=== PATIENT | female | born 1975 | race Hispanic/Latino ===

== ENCOUNTER 2017-09-06 06:57 | Outpatient (CLI) | payer BC ==
--- NOTE | 2017-09-06 09:49 | Magnetic Resonance Report ---
FINAL REPORT EXAM: MR ORBIT/FACE/NECK WO/W CON HISTORY: SWELLING OF LYMPH NODE TECHNIQUE: Fat sensitive and fluid sensitive MR sequences of the neck were performed in axial, coronal planes. Images were obtained before and after IV contrast administration. PRIORS: None. FINDINGS: There are nonenlarged lymph nodes in carotid regions bilaterally. No abnormal lymphadenopathy seen. There is mild prominence of the lingual tonsils bilaterally. There are no abnormal fluid collections seen. No abnormal mass is seen. Parotid glands and submandibular glands are symmetric. Soft IMPRESSION: Nonenlarged lymph nodes seen in the neck bilaterally. No abnormal lymphadenopathy seen. Mild prominence of lingual tonsils. There is otherwise there is no significant abnormality identified.
== END 2017-09-06 06:58 | disposition home or self-care (01) ==
LOC: MRI 06:57
DX: J35.1 Hypertrophy of tonsils (principal)
CPT/HCPCS: 70543; A9577

== ENCOUNTER → 2017-11-01 | Outpatient (CLI) | payer BC ==
[2017-11-01 07:25] LABS: Basophils % (Auto) 0.8 % (0.0-1.8); Eosinophils # (Auto) 0.1 K/mm3 (0.0-0.4); Eosinophils % (Auto) 1.3 % (0.0-4.3); Hematocrit 40.9 % (30.3-42.9); Hemoglobin 14.1 gm/dl (10.1-14.3); Lymphocytes # (Auto) 2.7 K/mm3 (1.2-5.4); Lymphocytes % (Auto) 43.6 % (13.4-35.0); Mean Corpuscular HGB Conc 35 % (30-34); Mean Corpuscular Hemoglobin 31 pg (28-32); Mean Corpuscular Volume 90 fl (79-97); Monocytes # (Auto) 0.5 K/mm3 (0.0-0.8); Monocytes % (Auto) 7.5 % (0.0-7.3); Platelet Count 224 K/mm3 (140-440); Red Blood Count 4.57 M/mm3 (3.65-5.03); Red Cell Distribution Width 12.3 % (13.2-15.2)
[2017-11-01 07:50] LABS: Alanine Aminotransferase 127 units/L (7-56); Albumin 4.3 g/dL (3.9-5); BUN/Creatinine Ratio 22; Blood Urea Nitrogen 11 mg/dL (7-17); Chol/HDL Ratio 6.17 %; HDL Cholesterol 41 mg/dL (40-59); Hemolysis Index 4; LDL Cholesterol,Direct 189 mg/dL (50-130)
--- NOTE | 2017-11-01 08:01 | Ultrasound Report ---
ULTRASOUND ABDOMEN LIMITED INDICATION: Elevated liver enzymes. Colonic constipation. COMPARISON: None similar. FINDINGS: Right upper quadrant sonography demonstrates diffusely echogenic liver with grossly preserved contours. No definite focal suspicious lesion or biliary dilatation. No gallstones or pericholecystic fluid. Gallbladder wall thickness is 1.7 mm. Common bile duct is 4.7 mm. Imaged pancreas, nonaneurysmal abdominal aorta and IVC within normal limits. Nonhydronephrotic 10.2 x 5.4 x 7.5 cm right kidney with cortical thickness of 1.7 cm. CONCLUSION: Fatty liver without acute sonographic abnormality, as described. Thank you for the opportunity to participate in this patient's care.
[2017-11-01 10:19] LABS: Hepatitis A Antibody IgM Non-Reactive (NonReactive); Hepatitis B Core IgM Non-Reactive (NonReactive); Hepatitis B Surface Antigen Non-Reactive (Negative); Hepatitis C Virus Antibody Non-Reactive (NonReactive)
[2017-11-03 23:02] LABS: ANA Screen, IFA Negative (Negative)
== END | disposition home or self-care (01) ==
LOC: US 06:54
DX: K59.09 Other constipation (principal)
CPT/HCPCS: 36415; 76705; 80053; 80061; 80074; 82103; 82390; 82728; 83520; 85025; 86038; 86235

== ENCOUNTER 2018-01-12 08:54 | Outpatient (CLI) | payer BC ==
--- NOTE | 2018-01-12 10:51 | Ultrasound Report ---
THYROID ULTRASOUND INDICATION: Hypothyroidism. COMPARISON: None similar. FINDINGS: Grayscale and color-flow thyroid sonography demonstrates normal echotexture and vascularity with slightly lobulated contours. No focal lesions. Right thyroid lobe estimated at 4.4 x 1.5 x 1.6 cm. Left thyroid lobe is 3.7 x 1.5 x 1.7 cm. Isthmus measures 0.2 cm AP. A 1.4 x 0.4 x 0.7 cm neck lymph node below the right ear incidentally noted. CONCLUSION: Unremarkable thyroid ultrasound, as described. Thank you for the opportunity to participate in this patient's care.
== END 2018-01-12 08:55 | disposition home or self-care (01) ==
LOC: US 08:54
PROVIDERS: ATTEND Family Medicine
DX: E03.9 Hypothyroidism, unspecified (principal); Z78.0 Asymptomatic menopausal state
CPT/HCPCS: 76536; 77080

== ENCOUNTER 2018-03-30 14:47 | Outpatient (CLI) | payer BC ==
--- NOTE | 2018-04-20 10:06 | Ultrasound Report ---
Left mammogram: This examination is a followup to outside examinations the latest being June 2017. Images and descriptions of ultrasound at that time demonstrated that the patient had palpable findings in the left breast with no ultrasound correlation. The only positive description was in the 7:00 location 1 cm from the nipple where there was a hyperechoic 7 mm echogenicity. On the prior exam there is also a hypoechoic 7.5 mm finding just posterior to the above finding. Ultrasound was initially performed without an attending radiologist in the patient has returned to our department for repeat imaging. She currently fails to describe any palpable finding but says that her some discomfort in the 7:00 location about 6 cm from the nipple. Imaging over this area shows no findings. 3 cm from the nipple in the 7:00 location however does again identify an area of hyperechogenicity which is similar but not exactly identical to the prior finding either in shape nor location since it is more than 1 cm from the nipple. It has however no suspicious characteristics. The hypoechoic area noted on the prior exam is not currently identified. No other significant findings are noted. Impressions: Benign appearing hyperechoic area that may represent a focal area of fat or other benign lesion. No ultrasound correlation with the area of focal discomfort. Recommendation: Clinical followup. It is of note that the patient had a left asymmetry on her prior mammogram one year ago and therefore a followup mammogram at this time should be considered. BI-RADS CATEGORY: 2 = Benign ACR BI-RADS MAMMOGRAPHIC CODES: 0 = Needs additional imaging evaluation; 1 = Negative; 2 = Benign; 3 = Probably benign; 4 = Suspicious; 5 = Malignant; 6 = Known biopsy-proven malignancy COMMENT: 1. Dense breast tissue, i.e., adenosis, fibrocystic changes, etc., may obscure an underlying neoplasm. 2. Approximately 10% of cancers are not detected with mammography. 3. A negative mammography report should not delay biopsy if a clinically suspicious mass is present.
== END 2018-03-30 14:48 | disposition home or self-care (01) ==
LOC: US 14:47
PROVIDERS: ATTEND Family Medicine
DX: R93.89 Abnormal findings on diagnostic imaging of other specified body structures (principal)

== ENCOUNTER 2018-12-27 09:07 | Day surgery (SDC) | payer BC ==
[2018-12-27 10:28] LABS: Basophils % (Auto) 0.7 % (0.0-1.8); Eosinophils # (Auto) 0.1 K/mm3 (0.0-0.4); Eosinophils % (Auto) 1.2 % (0.0-4.3); Hematocrit 38.4 % (30.3-42.9); Hemoglobin 13.1 gm/dl (10.1-14.3); Lymphocytes # (Auto) 2.7 K/mm3 (1.2-5.4); Lymphocytes % (Auto) 46.3 % (13.4-35.0); Mean Corpuscular HGB Conc 34 % (30-34); Mean Corpuscular Volume 89 fl (79-97); Monocytes # (Auto) 0.4 K/mm3 (0.0-0.8); Monocytes % (Auto) 7.3 % (0.0-7.3); Platelet Count 218 K/mm3 (140-440); Red Blood Count 4.31 M/mm3 (3.65-5.03)
[2018-12-27 11:19] LABS: Partial Thromboplastin Time 27.8 Sec. (24.2-36.6)
[2018-12-27] MEDS ORDERED: DILAUDID ONE (11:20)
[2018-12-27] MEDS ORDERED: ZOFRAN ONE (11:21)
[2018-12-27] MEDS ORDERED: DILAUDID IV ONE (11:35)
[2018-12-27] MEDS ORDERED: ZOFRAN IV ONE (11:35)
--- NOTE | 2018-12-27 12:57 | Cat Scan Report ---
CT-GUIDED LIVER BIOPSY INDICATION : Elevated Liver Enzymes. COMPARISON: None PROCEDURE: The risks (including but not limited to bleeding and infection) and benefits were explain ed to the patient and informed consent was obtained. All CT scans at this location are performed usi ng CT dose reduction for KINZARA by means of automated exposure control. A time out procedure was performed. The procedure site was prepped and draped in the usual sterile f ashion and lidocaine was used for local anesthesia. Anxiolysis was accomplished with IV Dilaudid and Zofran. Using CT guidance, a 17-gauge introducer needle was advanced into the right hepatic lobe. A single 1. 3 cm 18-gauge core biopsy was obtained for pathologic analysis. Follow-up postbiopsy scan demonstrate s no evidence for hemorrhage. The patient tolerated the procedure well with no complications. IMPRESSION: Successful CT-guided biopsy of the right hepatic lobe. Signer Name: Claudio Pratt Jr, MD Signed: 12/27/2018 12:53 PM Workstation Name: [id number]
[2018-12-27 14:20] VITALS: BP 110/68
== END 2018-12-27 15:35 | disposition home or self-care (01) ==
LOC: CATHLABREC 09:07
PROVIDERS: ATTEND Internal Medicine Gastroenterology
DX: K76.0 Fatty (change of) liver, not elsewhere classified (principal); R74.8 Abnormal levels of other serum enzymes; E78.00 Pure hypercholesterolemia, unspecified; K21.9 Gastro-esophageal reflux disease without esophagitis; E03.9 Hypothyroidism, unspecified; Z98.890 Other specified postprocedural states; Z79.899 Other long term (current) drug therapy; Z90.710 Acquired absence of both cervix and uterus
CPT/HCPCS: 36415; 47000; 77012; 85025; 85610; 85730; 88307; 88313; 96374; 96375; J1170; J2405

== ENCOUNTER 2019-01-29 08:02 | Day surgery (SDC) | payer BC ==
[~2019-01-29 08:02] MED LIST: SODIUM CHLORIDE 0.9% 1000 ML 1,000 ML IV SCH
--- NOTE | 2019-01-29 08:45 | Anesthesia Day of Surgery ---
Anesthesia Day of Surgery - Day of Surgery Patient Examined: Yes Patient H&P Reviewed: Yes Patient is NPO: Yes
--- NOTE | 2019-01-29 08:49 | Anesthesia Consultation ---
Anesthesia Consult and Med Hx Date of service: 01/29/19 - Airway Anesthetic Teeth Evaluation: Good (Braces) ROM Head & Neck: Adequate Mental/Hyoid Distance: Adequate Mallampati Class: Class II Intubation Access Assessment: Probably Good - Pre-Operative Health Status ASA Pre-Surgery Classification: ASA2 Proposed Anesthetic Plan: MAC - Central Nervous System Hx Psychiatric Problems: No - Endocrine Hx Liver Disease: Yes (Fatty liver and POLLOCK) Hx Hypothyroidism: Yes - Other Systems Hx Cancer: No
--- NOTE | 2019-01-29 09:53 | Short Stay Summary ---
Short Stay Documentation Date of service: 01/29/19 Narrative H&P: The patient presents for EGD to evaluate chronic GERD and exclude Mariscal's esophagus. - History Past Medical History: GERD, other (Migraines) Past Surgical History: hysterectomy Social history: no significant social history, no smoking, no alcohol abuse - Allergies and Medications Current Medications: Allergies No Known Allergies Allergy (Verified 12/27/18 10:03) Home Medications Medication Instructions Recorded Confirmed Last Taken Type Thyroid,Pork [Nature-Throid] 65 mg PO QDAY 12/27/18 12/27/18 01/28/19 History Valtrex 01/29/19 01/28/19 History Active Medications Sodium Chloride (Nacl 0.9% 1000 Ml) 1,000 mls @ 50 mls/hr IV DIRECT JOAQUIN Last Admin: 01/29/19 09:17 Dose: 50 mls/hr Documented by: - Physical exam General appearance: no acute distress Integumentary: no rash, no growths, no abnormal pigmentation HEENT: Atraumatic, PERRLA, EOMI, Mucous membr. moist/pink Lungs: Clear to auscultation, Normal air movement Breasts: deferred Heart: Regular rate, Normal S1, Normal S2, No murmurs, Murmur Gastrointestinal: normoactive bowel sounds, no tenderness, no distended, no masses, no guarding, no organomegaly Female Genitourinary: deferred Rectal Exam: deferred Extremities: no ischemia, pulses intact, pulses symmetrical, No edema, normal temperature, normal color, Full ROM Neurological: Normal gait, Normal speech, Strength at 5/5 X4 ext, Normal tone, Sensation intact, Cranial nerves 3-12 NL - Brief post op/procedure progress note Date of procedure: 01/29/19 Findings: see dictation Estimated blood loss: none Pathology: none Condition: stable - Disposition Condition at discharge: Good Disposition: DC-01 TO HOME OR SELFCARE - Discharge Diagnoses (1) GERD (gastroesophageal reflux disease) Status: Acute Short Stay Discharge Plan Activity: other (no driving for 24 hours) Weight Bearing Status: Weight Bear as Tolerated Diet: regular Follow up with: NATALI TRIMBLE MD [Primary Care Provider] - 7 Days
--- NOTE | 2019-01-29 09:56 | Operative Report ---
Operative Report Operative Report: Date of procedure: 01/29/2019 Procedure: Esophagogastroduodenoscopy Preprocedure diagnosis: Chronic GERD. Rule out Mariscal's. Post procedure diagnosis: Minimal distal esophagitis, no evidence of Mariscal's. Endoscopist: Dr. Henson Anesthesia: Monitored anesthesia care per anesthesia department Medications: Propofol and fentanyl per anesthesia. Estimated blood loss: 0 After careful discussion of the nature and purpose of the procedure as well as details the technique risks benefits and alternatives consent was obtained. The patient was placed in the left lateral decubitus position and medicated per anesthesia. The tip of the Olympus video scope was passed per orum under direct vision into the esophagus and advanced into the stomach and descending duodenum. The descending duodenum the duodenal bulb and pylorus were symmetrical and normal. The scope was withdrawn into the stomach and the stomach then gently insufflated with air. The antrum was normal. The stomach was further insufflated and the scope was then retroflexed and partially withdrawn. The cardia, fundus, and body of the stomach were within normal limits and easily distensible.The scope was then withdrawn in the forward position. No hiatus hernia was present. The esophagogastric junction was at 38 centimeters. There was minimal inflammation present at the Z line. The esophageal body was normal throughout. The procedure was was well tolerated and the patient was observed in recovery. Impressions: Minimal distal esophagitis. Normal study otherwise. No evidence of Mariscal's. Plan: Continue acid suppression therapy, diet and lifestyle measures. Office follow-up in 4-6 months. Electronically signed: Vish Henson MD
[2019-01-29] MEDS ORDERED: PROPOFOL 200 MG/20 ML VIAL IV ONE (10:00)
[2019-01-29 10:26] VITALS: BP 112/68
--- NOTE | 2019-01-29 10:31 | Post Anesthesia Evaluation ---
- Post Anesthesia Evaluation Patient Participated: Yes Airway Patent: Yes Stable Respiratory Function: Yes Nausea/Vomiting: No Temp > 96.8F: Yes Pain Manageable: Yes Adequeate Hydration: Yes Anesthesia Complications: No
[2019-01-29] MEDS ORDERED: LIDOCAINE MPF (2%) 20 MG/1 ML VIAL 5 ML ONE (11:00)
== END 2019-01-29 08:03 | disposition home or self-care (01) ==
LOC: GIO 08:02
PROVIDERS: ATTEND Internal Medicine Gastroenterology
DX: K21.0 Gastro-esophageal reflux disease with esophagitis (principal); E78.00 Pure hypercholesterolemia, unspecified; E03.9 Hypothyroidism, unspecified; Z90.710 Acquired absence of both cervix and uterus; Z98.890 Other specified postprocedural states; Z79.899 Other long term (current) drug therapy
CPT/HCPCS: 43235; J2704; J7030

== ENCOUNTER 2019-08-26 07:23 | Outpatient (CLI) | payer BC | END 2019-08-26 07:24 | disposition home or self-care (01) | LOC: US 07:23 | PROVIDERS: ATTEND Family Medicine | DX: N28.1 Cyst of kidney, acquired (principal); K76.0 Fatty (change of) liver, not elsewhere classified | CPT/HCPCS: 76700 ==

== ENCOUNTER 2019-09-05 10:27 | Outpatient (CLI) | payer BC ==
[2019-09-05 11:04] LABS: Blood Urea Nitrogen 9 mg/dL (7-17)
--- NOTE | 2019-09-05 12:30 | Cat Scan Report ---
CT abdomen w con INDICATION: MAIN. Abdominal pain TECHNIQUE: All CT scans at this location are performed using CT dose reduction for ALARA by means of automated e xposure control. COMPARISON: 12/27/2018 FINDINGS: Lung bases are clear. Diffuse hepatic steatosis, but no focal liver lesions. Spleen, pancreas, kidney s and adrenals are negative. Abdominal aorta is normal in size. No adenopathy. Incidental retroaortic left renal vein. IMPRESSION: 1. Hepatic steatosis. 2. No new abnormalities. Signer Name: Cortes Thomas MD Signed: 09/05/2019 12:26 PM Workstation Name: [id number]
== END 2019-09-05 10:28 | disposition home or self-care (01) ==
LOC: CT 10:27
PROVIDERS: ATTEND Family Medicine
DX: K76.0 Fatty (change of) liver, not elsewhere classified (principal); R91.1 Solitary pulmonary nodule; J30.89 Other allergic rhinitis; I26.99 Other pulmonary embolism without acute cor pulmonale; R93.5 Abnormal findings on diagnostic imaging of other abdominal regions, including retroperitoneum
CPT/HCPCS: 36415; 74160; 82565; 84520; Q9967

== ENCOUNTER 2020-01-16 09:01 | Outpatient (CLI) | payer BC ==
--- NOTE | 2020-01-16 11:21 | Treadmill Report ---
EXERCISE STRESS TEST The patient exercised for 9-1/2 minutes of a Tristan protocol, reaching stage 4 and achieving 10.5 METs. Peak heart rate was 162 beats per minute. Peak blood pressure was 145/90. There was no chest pain. Test was stopped for fatigue. Baseline ECG was sinus rhythm. With exercise, there were no ST changes of ischemia. No significant dysrhythmias were noted. CONCLUSION: 1. Very good exercise capacity. 2. No chest pain with exercise. 3. No ST changes of ischemia. 4. No significant dysrhythmias. 5. This is a normal exercise ECG test. JOB# [id number] CA/NTS
--- NOTE | 2020-01-16 12:26 | Mammography Report ---
DEXA BONE DENSITY SCAN INDICATION / CLINICAL INFORMATION: E89.40. 44 years Female COMPARISON: 01/12/2018. LUMBAR SPINE, L1-L3: - Bone mineral density (BMD) = 0.800 g/cm2. - T-score = -2.2 - Z-score = -1.9 Change (%) since most recent prior (if available): Decrease of 9.6% LEFT HIP, TOTAL : - Bone mineral density (BMD) = 0.907 g/cm2. - T-score = -0.3 - Z-score = 0.0 Change (%) since most recent prior (if available): Decrease of 0.5 % IMPRESSION: 1. WHO Classification: Osteopenia. Fracture Risk: Increased. BMD Reporting Guidelines (ISCD, 2015) BMD Reporting in Postmenopausal Women and in Men Age 50 and Older * T-scores are preferred. * The WHO densitometric classification is applicable. BMD Reporting in Females Prior to Menopause and in Males Younger Than Age 50 * Z-scores, not T-scores, are preferred. This is particularly important in children. * A Z-score of -2.0 or lower is defined as below the expected range for age, and a Z-score above -2. 0 is within the expected range for age. * Osteoporosis cannot be diagnosed in men under age 50 on the basis of BMD alone. * The WHO diagnostic criteria may be applied to women in the menopausal transition. http://www.iscd.org/official-positions/0318-vrlr-edtharvk-positions-adult/ Signer Name: Giuseppe Murcia MD Signed: 01/16/2020 12:22 PM Workstation Name: [id number]
== END 2020-01-16 09:02 | disposition home or self-care (01) ==
LOC: MAMMO 09:01
PROVIDERS: ATTEND Family Medicine
DX: R01.1 Cardiac murmur, unspecified (principal); E89.40 Asymptomatic postprocedural ovarian failure
CPT/HCPCS: 77080; 93017; 93306

== ENCOUNTER 2020-02-28 11:32 | Outpatient (CLI) | payer BC ==
[2020-02-28 12:06] LABS: Hematocrit 39.9 % (30.3-42.9); Hemoglobin 13.8 gm/dl (10.1-14.3); Mean Corpuscular HGB Conc 35 % (30-34); Mean Corpuscular Volume 90 fl (79-97); Platelet Count 252 K/mm3 (140-440); Red Blood Count 4.43 M/mm3 (3.65-5.03); Red Cell Distribution Width 12.8 % (13.2-15.2)
[2020-02-28 12:27] LABS: Alanine Aminotransferase 201 units/L (7-56); Albumin 4.4 g/dL (3.9-5); Blood Urea Nitrogen 10 mg/dL (7-17); Calcium 9.8 mg/dL (8.4-10.2); Chol/HDL Ratio 5.42 %; HDL Cholesterol 52 mg/dL (40-59); Hemolysis Index 9; LDL Cholesterol,Direct 249 mg/dL (50-130)
[2020-02-28 12:29] LABS: BUN/Creatinine Ratio 17
== END 2020-02-28 11:33 | disposition home or self-care (01) ==
LOC: LAB 11:32
PROVIDERS: ATTEND Internal Medicine Gastroenterology
DX: K76.0 Fatty (change of) liver, not elsewhere classified (principal)
CPT/HCPCS: 36415; 80053; 80061; 85027

== ENCOUNTER 2020-05-11 07:19 | Outpatient (CLI) | payer BC ==
--- NOTE | 2020-05-11 09:37 | Ultrasound Report ---
LIMITED RUQ ABDOMINAL ULTRASOUND INDICATION: ELEVATED LFTS. COMPARISON: CT abdomen from 09/05/2019. FINDINGS: Pancreas: Visualized portions show no significant abnormality. Abdominal Aorta: Normal size. IVC: No significant abnormality. Liver: The liver measures 15.6 cm in length. Diffusely echogenic parenchyma with no focal mass ident ified. Normal hepatopedal blood flow in the main portal vein. Gallbladder: No significant abnormality. Bile ducts: No significant abnormality. Common bile duct measures 4 mm. Right kidney: No significant abnormality visualized.. Free fluid: None. Additional Findings: None. IMPRESSION: 1. Echogenic appearance of the liver, most commonly seen with steatosis. Signer Name: Bautista Price MD Signed: 05/11/2020 9:32 AM Workstation Name: [id number]
== END 2020-05-11 07:20 | disposition home or self-care (01) ==
LOC: US 07:19
PROVIDERS: ATTEND Internal Medicine Gastroenterology
DX: R79.89 Other specified abnormal findings of blood chemistry (principal)
CPT/HCPCS: 76705

== ENCOUNTER 2020-05-26 10:26 | Day surgery (SDC) | payer BC ==
[2020-05-26] MEDS ORDERED: propofoL 200 MG/20 ML VIAL IV ONE ×2 (11:26→12:00)
--- NOTE | 2020-05-26 12:20 | Anesthesia Day of Surgery ---
Anesthesia Day of Surgery - Day of Surgery Patient Examined: Yes Patient H&P Reviewed: Yes Patient is NPO: Yes (Late entry. She was seen preop)
--- NOTE | 2020-05-26 12:21 | Anesthesia Consultation ---
Anesthesia Consult and Med Hx Date of service: 05/26/20 - Airway Anesthetic Teeth Evaluation: Good (Braces) ROM Head & Neck: Adequate Mental/Hyoid Distance: Adequate Mallampati Class: Class II Intubation Access Assessment: Good - Pre-Operative Health Status ASA Pre-Surgery Classification: ASA2 Proposed Anesthetic Plan: MAC - Pulmonary Hx Smoking: No - Central Nervous System Hx Psychiatric Problems: No - Endocrine Hx Liver Disease: Yes (Fatty liver and POLLOCK) Hx Hypothyroidism: Yes - Other Systems Hx Cancer: No Hx Obesity: Yes
--- NOTE | 2020-05-26 12:22 | Short Stay Summary ---
Short Stay Documentation Date of service: 05/26/20 Narrative H&P: The patient presents for screening colonoscopy, high risk profile due to father with colon cancer below the age of 60. - History Past Medical History: GERD, hyperlipidemia, liver disease (Fatty liver) Past Surgical History: hysterectomy Social history: no significant social history, no smoking, no alcohol abuse - Allergies and Medications Current Medications: Allergies No Known Allergies Allergy (Verified 12/27/18 10:03) Home Medications Medication Instructions Recorded Confirmed Last Taken Type Thyroid,Pork [Nature-Throid] 65 mg PO QDAY 12/27/18 05/26/20 05/25/20 09:00 History Valtrex 500 mg PO DAILY 01/29/19 05/26/20 05/25/20 09:00 History Green Tea Caplet 1 tab PO DAILY 03/27/20 05/26/20 05/25/20 09:00 History Active Medications Sodium Chloride (Nacl 0.9% 1000 Ml) 1,000 mls @ 50 mls/hr IV DIRECT JOAQUIN Last Admin: 05/26/20 11:30 Dose: 50 mls/hr Documented by: - Physical exam General appearance: no acute distress, well-nourished Integumentary: no rash, no growths, no abnormal pigmentation HEENT: Atraumatic, PERRLA, EOMI, Mucous membr. moist/pink Lungs: Clear to auscultation Breasts: deferred Heart: Regular rate, Normal S1, Normal S2, No murmurs Gastrointestinal: normoactive bowel sounds, no distended, no masses, no guarding, no organomegaly Rectal Exam: normal exam-external/orifice, normal rectal tone, no mass Extremities: no ischemia, pulses intact, pulses symmetrical, No edema, normal temperature, normal color, Full ROM Neurological: Normal gait, Normal speech, Strength at 5/5 X4 ext, Normal tone, Sensation intact, Cranial nerves 3-12 NL - Brief post op/procedure progress note Date of procedure: 05/26/20 Findings: See dictation Estimated blood loss: none Pathology: none Condition: stable - Disposition Condition at discharge: Good Disposition: DC-01 TO HOME OR SELFCARE - Discharge Diagnoses (1) Family history of colon cancer in father Status: Acute Short Stay Discharge Plan Activity: other (No driving for 24 hours) Weight Bearing Status: Full Weight Bearing Diet: regular Follow up with: GUILLERMINA WAITE MD [Primary Care Provider] - 7 Days
--- NOTE | 2020-05-26 12:23 | Operative Report ---
Operative Report Operative Report: Date of procedure: 05/26/2020 Preprocedure diagnosis: Family history of colon cancer, father under age 60. Post procedure diagnosis: Normal study Procedure: Colonoscopy to the cecum Endoscopist: Dr. Henson Anesthesia: Monitored anesthesia care per anesthesia department Estimated blood loss: 0 Medications: Monitored anesthesia care. See separate report by anesthesia for details. After careful discussion of the nature and purpose of the procedure as well as details of the technique risks benefits and alternatives the patient gave consent. Please see recent history and physical from the office. The patient was placed in the left lateral decubitus position and medicated per anesthesia. A rectal exam was performed sphincter tone was normal there were no masses palpable. The [employer] 570 scope was passed transanally and advanced under continuous direct vision without difficulty to the cecum. The colon was well prepared. The cecum was normal. The ascending colon was normal and on forward and retroflexed views. The transverse colon, descending colon, and sigmoid colon were normal. The rectum was normal on forward and retroflexed views. The procedure was well-tolerated overall and the patient was observed in recovery. Conclusions: Normal colonoscopy to the cecum. Plan: Repeat colonoscopy in 5 years. Signed electronically: Vish Henson M.D.
[2020-05-26] MEDS ORDERED: ONDANSETRON 4 MG/2 ML INJ ONE (12:31)
[2020-05-26] MEDS ORDERED: ONDANSETRON 4 MG/2 ML INJ IV ONE (12:31)
[2020-05-26 13:18] VITALS: BP 134/80
--- NOTE | 2020-05-26 16:26 | Post Anesthesia Evaluation ---
- Post Anesthesia Evaluation Patient Participated: Yes Airway Patent: Yes Stable Respiratory Function: Yes Nausea/Vomiting: No Temp > 96.8F: Yes Pain Manageable: Yes Adequeate Hydration: Yes Anesthesia Complications: No Block Receding Appropriately: Not Applicable Patient on Ventilator: No
== END 2020-05-26 10:27 | disposition home or self-care (01) ==
LOC: GIO 10:26
PROVIDERS: ATTEND Internal Medicine Gastroenterology
DX: Z12.11 Encounter for screening for malignant neoplasm of colon (principal); K21.9 Gastro-esophageal reflux disease without esophagitis; E66.9 Obesity, unspecified; E03.9 Hypothyroidism, unspecified; Z80.0 Family history of malignant neoplasm of digestive organs; Z90.710 Acquired absence of both cervix and uterus; Z79.899 Other long term (current) drug therapy; Z98.890 Other specified postprocedural states; Z68.33 Body mass index [BMI] 33.0-33.9, adult
CPT/HCPCS: 45378; J2405; J2704; J7030